=== PATIENT | female | born 1985 | race Caucasian/White ===

== ENCOUNTER 2020-01-30 21:40 | Emergency (ER) | payer BC, MEDICAID ==
[~2020-01-30] VITALS: Ht 182.9 cm; Wt 127.3 kg
[~2020-01-30 21:40] MED LIST: NO HOME MEDS; ONDA4TAB6 PO
[2020-01-30] MEDS ORDERED: dexamethasone sod phosphate 10mg/ml inj IV STA (21:48)
--- NOTE | 2020-01-30 21:49 | NUR ---
DR BEACH MADE AWARE OF PT STATUS. STATES HE WILL PLACE ORDERS.
[2020-01-30] MEDS ORDERED: diphenhydrAMINE 50 mg/ml inj IV ONE (21:50)
[2020-01-30] MEDS ORDERED: famotidine/PF 10 mg/ml inj IV ONE (21:50)
--- NOTE | 2020-01-30 22:51 | NUR ---
PT AMBULATED UP TO BATHROOM AND BACK TO ROOM WITHOUT ASSISTANCE OR INCIDENT.
[2020-01-30] MEDS ORDERED: PRED20TA PO (22:57)
[2020-01-30 23:12] VITALS: BP 147/83
== END 2020-01-30 23:16 | disposition home or self-care (01) ==
LOC: ER 21:41
DX: L23.7 Allergic contact dermatitis due to plants, except food (principal); Z87.440 Personal history of urinary (tract) infections; Z90.89 Acquired absence of other organs; Z98.890 Other specified postprocedural states; Z91.030 Bee allergy status; Z79.899 Other long term (current) drug therapy
CPT/HCPCS: 96374; 96375; 99284; J1100; J1200; J3490